=== PATIENT | male | born 2000 | race Caucasian/White ===

== ENCOUNTER 2019-05-26 20:47 | Emergency (ER) | payer OTHER ==
--- NOTE | 2019-05-26 21:18 | ED Physician Documentation ---
PD HPI URI - Stated complaint Stated Complaint: CONGESTION/FEVER/COUGH - Chief complaint Chief Complaint: Resp - History obtained from History obtained from: Patient - History of Present Illness Timing - onset: How many weeks ago (1) Timing details: Gradual onset Associated symptoms: Fever, Chills, Sweats, Productive cough Improves by: Nothing Similar symptoms before: Has not had sx before Recently seen: Not recently seen - Additional information Additional information: c/o one week subjective fever (has not taken temperature), productive cough, chest wall (ribs, per patient) pain due to coughing. Review of Systems Constitutional: reports: Fever, Chills, Myalgias, Sweats Throat: denies: Sore throat Cardiac: reports: Chest pain / pressure (chest wall pain) Respiratory: reports: Cough. denies: Dyspnea, Wheezing GI: reports: Reviewed and negative PD PAST MEDICAL HISTORY - Past Medical History Past Medical History: No Cardiovascular: None Respiratory: None Neuro: None Endocrine/Autoimmune: None GI: None : None HEENT: None Psych: None Musculoskeletal: None Derm: None - Past Surgical History Past Surgical History: Yes HEENT: Myringotomy (tubes) - Present Medications Home Medications: Ambulatory Orders Medication Instructions Recorded Confirmed Azithromycin [Zithromax] 250 mg PO DAILY #4 tablet 05/26/19 guaiFENesin/CODEINE [Robitussin AC] 5 ml PO Q6H PRN #60 udc 05/26/19 - Allergies Allergies/Adverse Reactions: Allergies Allergy/AdvReac Type Severity Reaction Status Date / Time No Known Drug Allergies Allergy Verified 05/26/19 20:58 - Social History Does the pt smoke?: No Smoking Status: Never smoker Does the pt drink ETOH?: No Does the pt have substance abuse?: No - Immunizations Immunizations are current?: Yes - POLST Patient has POLST: No PD ED PE NORMAL - Vitals Vital signs reviewed: Yes - General General: Alert and oriented X 3, No acute distress, Well developed/nourished - HEENT HEENT: Moist mucous membranes - Cardiac Cardiac: RRR, No murmur - Respiratory Respiratory: No respiratory distress - Abdomen Abdomen: Soft, Non tender PD ED PE EXPANDED - Respiratory Respiratory: Rhonchi (right upper/mid lung simon). No: Distress Results - Vitals Vitals: Oxygen O2 Source Room air PD MEDICAL DECISION MAKING - ED course Complexity details: considered differential, d/w patient ED course: appears comfortable and in NAD. HPI is s/o pneumonia, and he has mild rhonchi on exam. will treat as pneumonia without tests, as testing unlikely to change treatment (appears to well to realistically expect test results would indicate need for hospital admission, and HPI and exam have sufficient findings to warrant clinical diagnosis of pneumonia even if CXR were unremarkable). Departure - Departure Disposition: 01 Home, Self Care Clinical Impression: Pneumonia Condition: Good Instructions: ED Pneumonia Adult Prescriptions: Azithromycin [Zithromax] 250 mg PO DAILY #4 tablet guaiFENesin/CODEINE [Robitussin AC] 5 ml PO Q6H PRN #60 udc PRN Reason: Cough Discharge Date/Time: 05/26/19 21:56
[2019-05-26] MEDS ORDERED: AZITHROMYCIN 250 MG TABLET PO STA (21:33)
[2019-05-26] MEDS ORDERED: guaiFENesin/CODEINE 5 ML UDC PO STA (21:38)
[2019-05-26 21:56] VITALS: BP 116/81
== END 2019-05-26 21:56 | disposition home or self-care (01) ==
LOC: ED 20:47
DX: J18.9 Pneumonia, unspecified organism (principal)
CPT/HCPCS: 99282; 99284; A9270